=== PATIENT | male | born 1955 | race Caucasian/White ===

== ENCOUNTER 2017-06-15 03:09 | Emergency (ER) | payer BC ==
[~2017-06-15] VITALS: Ht 177.8 cm; Wt 104.5 kg
[2017-06-15 03:18] VITALS: BP 162/108
--- NOTE | 2017-06-15 03:52 | NUR ---
PT AMBULATED TO ER BED 2
--- NOTE | 2017-06-15 03:55 | NUR ---
PATIENT PRESENTS TO ED WITH C/O ABD PAIN, N/V/D. MED HX: HTN/ACID REFLUX/STINT 4 YRS AGO/BILAT. HIP REPLACEMENT PT SKIN IS PINK/WARM/DRY; AAOX4 WITH EVEN AND STEADY GAIT; LUNGS CLEAR BL; HR EVEN AND REGULAR; PT DENIES ANY FEVER, CP, SOB, OR COUGH AT THIS TIME; PATIENT STATES PAIN OF 8/10 AT THIS TIME; PATIENT POSITIONED FOR COMFORT; HOB ELEVATED; BEDRAILS UP X2; BED DOWN. ER MD MADE AWARE OF PT STATUS.
[2017-06-15 04:03] LABS: HEMOGLOBIN 17.1 g/dL (12.0-18.0)
[2017-06-15 04:06] LABS: HEMATOCRIT 52.5 % (36-52); MEAN CORPUSCULAR HEMOGLOBIN 31 pg (27-31); MEAN CORPUSCULAR HGB CONC 33 g/dL (33-37); MEAN CORPUSCULAR VOLUME 96 fL (80-94); PLATELET COUNT (AUTO) 145 K/uL (140-450); RED BLOOD CELL COUNT(AUTO) 5.49 MIL/uL (4.20-6.10); RED CELL DISTRIBUTION WIDTH 13.8 % (11.6-13.7); WHITE BLOOD COUNT (AUTO) 12.9 K/uL (4.8-10.8)
[2017-06-15 04:07] LABS: APPEARANCE,URINE CLEAR (CLEAR); BILIRUBIN,URINE NEGATIVE (NEGATIVE); BLOOD, URINE 2+ (NEGATIVE); COLOR,URINE YELLOW (YELLOW); LEUKOCYTE ESTERASE ,URINE NEGATIVE (NEGATIVE); NITRITE, URINE NEGATIVE (NEGATIVE); UGLUCOSE NEGATIVE (NEGATIVE)
[2017-06-15 04:10] LABS: EOSINOPHILS % (MANUAL) 3 % (0-4); LYMPHOCYTES % (MANUAL) 9 % (20-46); MONOCYTES % (MANUAL) 5 % (5-12)
[2017-06-15 04:14] LABS: ANION GAP 13.4 (8-16); CARBON DIOXIDE 26.9 mmol/L (21-32); POTASSIUM 4.3 mmol/L (3.5-5.1)
[2017-06-15 04:15] LABS: ALBUMIN 3.2 g/dL (3.4-5.0); CREATININE 1.1 mg/dL (0.7-1.3); TOTAL BILIRUBIN 1.5 mg/dL (0.0-1.0)
[2017-06-15 04:17] LABS: RBC,URINE 11-20 (MOD) /HPF (0-5); WBC,URINE 0-5 (RARE) /HPF (0-5)
[2017-06-15] MEDS ORDERED: NACL 0.9% 1,000 ML IV ONE (04:20)
[2017-06-15] MEDS ORDERED: HYDROmorphone 1 MG/ML AMP IVP ONE (04:20)
[2017-06-15] MEDS ORDERED: LOPERAMIDE 2 MG CAP PO ONE ×2 (04:20→05:23)
[2017-06-15] MEDS ORDERED: ONDANSETRON 4 MG/2 ML VIAL IVP ONE (04:20)
--- NOTE | 2017-06-15 04:33 | NUR ---
pt taken to ct via wheel chair
--- NOTE | 2017-06-15 04:45 | NUR ---
dilaudid and imodium not available in er saud [facility] sup. notified.
[2017-06-15] MEDS ORDERED: HYDROmorphone 1 MG/ML AMP ONE (05:12)
--- NOTE | 2017-06-15 06:13 | NUR ---
PT RETURNED FROM CT.
[2017-06-15] MEDS ORDERED: ALBUTEROL SULFATE/IPRATROPIU 3 ML SOL IH ONE (07:05)
--- NOTE | 2017-06-15 07:30 | NUR ---
Pt report given to BIJU. Transfer of care at this time.
--- NOTE | 2017-06-15 07:41 | NUR ---
Patient discharged with v/s stable. Written and verbal after care instructions given and explained. Patient alert, oriented and verbalized understanding of instructions. Ambulatory with steady gait. All questions addressed prior to discharge. ID band removed. Patient advised to follow up with PMD. Rx of ZOFRAN, ALBUTEROL given. Patient educated on indication of medication including possible reaction and side effects. Opportunity to ask questions provided and answered.
[2017-06-15 07:57] VITALS: BP 133/74
== END 2017-06-15 07:41 | disposition home or self-care (01) ==
LOC: MED 03:09
DX: K52.9 Noninfective gastroenteritis and colitis, unspecified (principal); J84.10 Pulmonary fibrosis, unspecified; K74.60 Unspecified cirrhosis of liver; I10 Essential (primary) hypertension; K21.9 Gastro-esophageal reflux disease without esophagitis; Z88.1 Allergy status to other antibiotic agents; Z87.891 Personal history of nicotine dependence
CPT/HCPCS: 36415; 71045; 71250; 74176; 80053; 81001; 83690; 83880; 84484; 85025; 93005; 94640; 96361; 96374; 96375; 99285; J1170; J2405; J7030; J7620; Q0092